=== PATIENT | male | born 1990 | race Caucasian/White ===

== ENCOUNTER 2016-07-30 19:53 | Inpatient (IN) | payer OTHER ==
[~2016-07-30] VITALS: Ht 172.7 cm; Wt 55.3 kg
[2016-07-30 19:56] VITALS: BP 127/88; PULSE 116; RESP 16; TEMP 97.6; O2SAT 97
[2016-07-30] MEDS ORDERED: SODIUM CHLOR 0.9% 1000 ML INJ 1,000 ML IV ONE ×3 (21:23→22:15)
[2016-07-30] MEDS ORDERED: ONDANSETRON HCL 4 MG/2 ML VIAL IV PUSH ONE (21:30)
[2016-07-30] MEDS ORDERED: SODIUM CHLORIDE 0.9% FLUSH 5 ML FLUSH IVF PRN (21:30)
--- NOTE | 2016-07-30 21:31 | PD ---
HPI Chief Complaint: GI Complaint Time Seen by Provider: 21:14 Travel History International Travel<30 days: No Contact w/Intl Traveler<30days: No Traveled to known affect area: No History of Present Illness HPI 26-year-old male here with family for evaluation of several episodes of nausea, vomiting, and 17 pound weight loss over the last month. Throughout the past month the patient has had intermittent vomiting. Since yesterday the patient has had several episodes of vomiting. Emesis is clear and consistent whatever he is eaten or drink. No blood or bile. No diarrhea. No abdominal pain. He notices that his mouth is very dry and that things taste better. No paresthesias or motor deficits. He has had polydipsia and polyuria. No family history of diabetes. He occasionally drinks alcohol. No tobacco or illicit drugs. Bedside fingerstick glucose performed after assessment and is over 500. [facility] Social History Tobacco Use: No Allergies-Medications (Allergen,Severity, Reaction): Coded Allergies: No Known Allergies (Unverified , 07/30/16) Reported Meds & Prescriptions Reported Meds & Active Scripts Active No Active Prescriptions or Reported Medications Review of Systems Except as stated in HPI: all other systems reviewed are Neg Physical Exam Narrative GENERAL: Well-developed, cachectic appearing, comfortable, no acute distress. SKIN: Warm and dry. HEAD: Atraumatic. Normocephalic. EYES: Pupils equal and round. No scleral icterus. No injection or drainage. ENT: No nasal bleeding or discharge. Mucous membranes pink and dry. NECK: Trachea midline. No JVD. No nuchal rigidity. CARDIOVASCULAR: Regular rate and rhythm. RESPIRATORY: No accessory muscle use. Clear to auscultation. Breath sounds equal bilaterally. GASTROINTESTINAL: Abdomen soft, non-tender, nondistended. MUSCULOSKELETAL: No obvious deformities. No clubbing. No cyanosis. No edema. NEUROLOGICAL: Awake and alert. No obvious cranial nerve deficits. Motor grossly within normal limits. Normal speech. PSYCHIATRIC: Appropriate mood and affect; insight and judgment normal. Data Data Last Documented VS Vital Signs Date Time Temp Pulse Resp B/P Pulse Ox O2 Delivery O2 Flow Rate FiO2 07/30/16 23:27 103 16 109/55 98 Nasal Cannula 2 07/30/16 19:56 97.6 Orders Complete Blood Count With Diff (07/30/16 21:23) Comprehensive Metabolic Panel (07/30/16 21:23) Beta Hydroxybutyrate (Acetone) (07/30/16 21:23) Urinalysis - C+S If Indicated (07/30/16 21:23) Blood Gas Venous (Vbg) (07/30/16 21:23) Ecg Monitoring (07/30/16 21:23) Iv Access Insert/Monitor (07/30/16 21:23) Oximetry (07/30/16 21:23) NPO (07/30/16 21:23) Sodium Chlor 0.9% 1000 Ml Inj (Ns 1000 M (07/30/16 21:23) Sodium Chlor 0.9% 1000 Ml Inj (Ns 1000 M (07/30/16 21:53) Sodium Chloride 0.9% Flush (Ns Flush) (07/30/16 21:30) Ondansetron Inj (Zofran Inj) (07/30/16 21:30) Sodium Chlor 0.9% 1000 Ml Inj (Ns 1000 M (07/30/16 22:15) ^ Patient Service Representative / Telemetry (07/30/16 23:01) ^ Insert Iv (07/30/16 23:01) Diet Npo (07/31/16 Breakfast) Sodium Chlor 0.9% 1000 Ml Inj (Ns 1000 M (07/30/16 23:01) Dext 5%-Nacl 0.9% 1000 Ml Inj (D5w-Ns 10 (07/30/16 23:01) Insulin Human Regular Inj (Novolin R Inj (07/30/16 23:15) Insulin Regular (Iv Infusion) (Novolin R (07/30/16 23:15) Potassium Chlor 40 Meq Premix (Kcl 40 Me (07/30/16 23:15) Potassium Chlor 40 Meq Premix (Kcl 40 Me (07/30/16 23:15) Potassium Chlor 20 Meq Premix (Kcl 20 Me (07/30/16 23:15) Potassium Chlor 20 Meq Premix (Kcl 20 Me (07/30/16 23:15) Potassium Chlor 20 Meq Premix (Kcl 20 Me (07/30/16 23:15) Potassium Chlor 20 Meq Premix (Kcl 20 Me (07/30/16 23:15) Potassium Chlor 20 Meq Premix (Kcl 20 Me (07/30/16 23:15) Potassium Chlor 20 Meq Premix (Kcl 20 Me (07/30/16 23:15) Sodium Bicarbonate 8.4% Inj (Sodium Bica (07/30/16 23:15) Sodium Bicarbonate 8.4% Inj (Sodium Bica (07/30/16 23:15) Sodium Phosphate Inj (Sodium Phosphate I (07/30/16 23:15) Hemoglobin (Hgb) A1c (07/30/16 23:01) Basic Metabolic Panel (Bmp) (07/31/16 04:01) Basic Metabolic Panel (Bmp) (07/31/16 10:01) Basic Metabolic Panel (Bmp) (07/31/16 16:01) Basic Metabolic Panel (Bmp) (07/31/16 22:01) Magnesium (Mg) (07/31/16 04:01) Magnesium (Mg) (07/31/16 10:01) Magnesium (Mg) (07/31/16 16:01) Magnesium (Mg) (07/31/16 22:01) Phosphorus (Po4) (07/31/16 04:01) Phosphorus (Po4) (07/31/16 10:01) Phosphorus (Po4) (07/31/16 16:01) Phosphorus (Po4) (07/31/16 22:01) Beta Hydroxybutyrate (Acetone) (07/31/16 10:01) Beta Hydroxybutyrate (Acetone) (07/31/16 22:01) Admit Order (Ed Use Only) (07/30/16 23:27) ^ Initiate Protocol (07/30/16 23:24) ^ Instruction (07/30/16 23:24) [facility] Nursing Information (07/30/16 23:30) Chlorhexidine 2% Cloth (Chlorhexidine 2% (07/31/16 04:00) Chlorhexidine 2% Cloth (Chlorhexidine 2% (07/30/16 23:30) Mrsa Pcr Surveillance (07/30/16 23:24) Admit To Inpatient (07/30/16 ) Vital Signs (Adult) Q4H (07/30/16 23:24) Activity Oob Ad Nadiya (07/30/16 23:24) ^ Patient Service Representative / Telemetry .CONTINUOUS (07/30/16 23:24) Intake + Output JANNA.QSHIFT (07/30/16 23:24) Sodium Chloride 0.9% Flush (Ns Flush) (07/30/16 23:30) Sodium Chloride 0.9% Flush (Ns Flush) (07/31/16 09:00) Ondansetron Inj (Zofran Inj) (07/30/16 23:30) Bisacodyl Supp (Dulcolax Supp) (07/30/16 23:30) Scd Bilateral/Knee High JANNA.BID (07/30/16 23:24) Gregorio Bilateral/Knee High JANNA.QSHIFT (07/30/16 23:24) Acetaminophen (Tylenol) (07/30/16 23:30) Acetamin-Hydrocod 325-5 Mg ([place] 5-325 (07/30/16 23:30) Acetamin-Hydrocod 325-10 Mg ([place] 10-32 (07/30/16 23:30) Inpatient Certification (07/30/16 ) Consult Mat Tester (07/30/16 ) Protein Corrected Calcium(Pcc) (07/31/16 03:21) Labs Laboratory Tests Test 07/30/16 07/30/16 21:50 22:05 White Blood Count 12.4 TH/MM3 Red Blood Count 5.64 MIL/MM3 Hemoglobin 16.2 GM/DL Hematocrit 49.4 % Mean Corpuscular Volume 87.6 FL Mean Corpuscular Hemoglobin 28.8 PG Mean Corpuscular Hemoglobin 32.8 % Concent Red Cell Distribution Width 13.1 % Platelet Count 359 TH/MM3 Mean Platelet Volume 10.3 FL Neutrophils (%) (Auto) 80.8 % Lymphocytes (%) (Auto) 11.5 % Monocytes (%) (Auto) 6.7 % Eosinophils (%) (Auto) 0.4 % Basophils (%) (Auto) 0.6 % Neutrophils # (Auto) 10.0 TH/MM3 Lymphocytes # (Auto) 1.4 TH/MM3 Monocytes # (Auto) 0.8 TH/MM3 Eosinophils # (Auto) 0.0 TH/MM3 Basophils # (Auto) 0.1 TH/MM3 CBC Comment DIFF FINAL Differential Comment Urine Color LIGHT-YELLOW Urine Turbidity CLEAR Urine pH 5.0 Urine Specific [place] 1.035 Urine Protein 30 mg/dL Urine Glucose (UA) 1000 mg/dL Urine Ketones 150 mg/dL Urine Occult Blood TRACE Urine Nitrite NEG Urine Bilirubin NEG Urine Urobilinogen LESS THAN 2.0 MG/DL Urine Leukocyte Esterase NEG Urine RBC 1 /hpf Urine WBC 1 /hpf Urine Squamous Epithelial <1 /hpf Cells Urine Bacteria RARE /hpf Urine Granular Casts 3 /lpf Urine Mucus FEW /lpf Microscopic Urinalysis Comment CULT NOT INDICATED Sodium Level 135 MEQ/L Potassium Level 4.6 MEQ/L Chloride Level 94 MEQ/L Carbon Dioxide Level 11.9 MEQ/L Anion Gap 29 MEQ/L Blood Urea Nitrogen 13 MG/DL Creatinine 1.33 MG/DL Estimat Glomerular Filtration 64 ML/MIN Rate Random Glucose 485 MG/DL Calcium Level 9.6 MG/DL Total Bilirubin 0.6 MG/DL Aspartate Amino Transf 22 U/L (AST/SGOT) Alanine Aminotransferase 29 U/L (ALT/SGPT) Alkaline Phosphatase 92 U/L Total Protein 9.5 GM/DL Albumin 5.1 GM/DL B-Hydroxybutyrate 12.74 MMOL/L Blood Gas Puncture Site Blood Gas Patient Temperature 98.6 Venous Blood pH 7.16 Venous Blood Partial Pressure 31 mmHg CO2 Venous Blood Partial Pressure 44 mmHg O2 Venous Blood HCO3 11 mmol/L Venous Blood Oxygen Saturation 69 % Venous Blood Oxygen Content 16.5 Vol % Venous Blood Base Excess -16.5 mmol/L Oxygen Delivery Device ROOM AIR Blood Gas Inspired Oxygen 21 % MDM Medical Decision Making Medical Screen Exam Complete: Yes Emergency Medical Condition: Yes Interpretation(s) EKG: Sinus, rate 90, rightward axis, early repolarization, peaked T waves, no ischemic abnormality. Differential Diagnosis DKA, new onset diabetes, dehydration Narrative Course Initial vital signs show heart rate 116, blood pressure 127/80, pulse ox 97% on room air, oral temp of 97.6 reason Fahrenheit. Heart rate improved to the 90s after 2 L of IV fluids. Bedside glucose at time of initial assessment was over 500. Patient has ketotic odor on breath. I have a high suspicion for DKA. DKA labs sent, VBG performed, the patient was given a total of 3 L of IV fluids. VBG shows a venous pH of 7.15 with a bicarbonate of 10.5. CMP shows WBC 12.4 with 80.8% neutrophils. This is likely from stress demargination from vomiting. CMP shows a potassium of 4.6 with slight hemolysis, bicarbonate 11.9, anion gap 29, creatinine 1.33, GFR 64, random glucose 485. DKA protocol initiated after CMP/potassium resulted. Beta hydroxybutyrate is 12.74. The patient and the patient's family were made aware of all findings and plan for admission to the ICU. Case discussed with hospitalist Dr. Doyle who will admit the patient to her service. Although homa states that the patient has [facility] insurance, it does not start until August. Critical Care Narrative Aggregate critical care time was 40 minutes. Time to perform other separately billable procedures was not included in the critical care time. My time did not include minutes spent treating any other patients simultaneously or on activities that did not directly contribute to the patient's treatment. The services I provided to this patient were to treat and/or prevent clinically significant deterioration that could result in: , permanent disability, worsening clinical condition, diabetic coma I provided critical care services requiring my management, as noted below: Chart data review, documentation time, medication orders and management, vital sign assessments/reviewing monitor data, ordering and reviewing lab tests, ordering and interpreting/reviewing x-rays and diagnostic studies, care of the patient and discussion of the patient with the admitting physicians. Diagnosis Primary Impression: DKA (diabetic ketoacidoses) Qualified Code: E13.10 - Diabetic ketoacidosis without coma associated with other specified diabetes mellitus Additional Impression: Diabetes mellitus, new onset Admitting Information Admitting Physician Requests: Admit Scripts No Active Prescriptions or Reported Meds Jonathan Cantu MD Jul 30, 2016 21:31
[2016-07-30 22:06] VITALS: RESP 18
[2016-07-30 22:12] LABS: BLOOD GAS VENOUS BASE EXCESS -16.5 mmol/L (-2-2); BLOOD GAS VENOUS HCO3 11 mmol/L (22-26); BLOOD GAS VENOUS O2 CONTENT 16.5 Vol % (9.0-17.0); BLOOD GAS VENOUS O2 HGB SAT 69 % (70-76); BLOOD GAS VENOUS PCO2 31 mmHg (44-48); BLOOD GAS VENOUS PO2 44 mmHg (35-40); BLOOD GAS VENOUS pH 7.16 (7.360-7.400); TEMP CORR TO 98.6
[2016-07-30 22:13] LABS: CRITICAL VALUE YES; FIO2 21 %; OXYGEN DEVICE ROOM AIR; STAT YES
[2016-07-30 22:18] LABS: BASOPHIL # 0.1 TH/MM3 (0-0.2); BASOPHIL % 0.6 % (0.0-2.0); EOSINOPHIL % 0.4 % (0.0-4.0); HEMATOCRIT 49.4 % (39.0-51.0); HEMO FLAGS DIFF FINAL; LYMPH % 11.5 % (9.0-44.0); LYMPHOCYTE # 1.4 TH/MM3 (1.0-4.8); MEAN CELL VOLUME 87.6 FL (80.0-100.0); MEAN CORPUSCULAR HEMOGLOBIN 28.8 PG (27.0-34.0); MEAN CORPUSCULAR HGB CONC 32.8 % (32.0-36.0); MONO % 6.7 % (0.0-8.0); NEUT % 80.8 % (16.0-70.0); PLATELET COUNT 359 TH/MM3 (150-450); RED BLOOD COUNT 5.64 MIL/MM3 (4.50-5.90); RED CELL DISTRIBUTION WIDTH 13.1 % (11.6-17.2); WHITE BLOOD COUNT 12.4 TH/MM3 (4.0-11.0)
[2016-07-30 22:34] LABS: BACTERIA, URINE RARE /hpf; BLOOD, URINE TRACE (NEG); COMMENT (UR) CULT NOT INDICATED; CULTURE IF INDICATED CULT NOT INDICATED; GLUCOSE,URINE 1000 mg/dL (NEG); GRANULAR CAST, URINE 3 /lpf; KETONE, URINE 150 mg/dL (NEG); MUCUS URINE FEW /lpf (OCC); NITRITE,URINE NEG (NEG); SQUAMOUS EPITHELIAL CELL URINE <1 /hpf (0-5); URINE COLOR LIGHT-YELLOW (YELLW/STRAW)
[2016-07-30 22:58] LABS: ALKALINE PHOSPHATASE 92 U/L (45-117); ALT (GPT) 29 U/L (12-78); ANION GAP 29 MEQ/L (5-15); AST (GOT) 22 U/L (15-37); BETA-HYDROXYBUTYRATE 12.74 MMOL/L (0.00-0.39); BICARBONATE 11.9 MEQ/L (21.0-32.0); BLOOD UREA NITROGEN 13 MG/DL (7-18); CHLORIDE 94 MEQ/L (98-107); GLOMERULAR FILTRATION RATE 64 ML/MIN (>89); SODIUM (NA) 135 MEQ/L (136-145); TOTAL BILIRUBIN ADULT 0.6 MG/DL (0.2-1.0)
[2016-07-30 22:59] LABS: POTASSIUM 4.6 MEQ/L (3.5-5.1)
[2016-07-30] MEDS ORDERED: POTASSIUM CHLOR 20 MEQ PREMIX 100 ML IV PRN ×5 (23:15)
[2016-07-30] MEDS ORDERED: POTASSIUM CHLOR 40 MEQ PREMIX 100 ML IV PRN ×2 (23:15)
[2016-07-30] MEDS ORDERED: INSULIN REGULAR (IV INFUSION) 100 UNITS in SODIUM CHLORIDE 0.9% INJ 99 ML IV SCH (23:15)
[2016-07-30] MEDS ORDERED: SODIUM PHOSPHATE INJ 15 MMOL in SODIUM CHLORIDE 0.9% INJ 100 ML IV PRN (23:15)
[2016-07-30] MEDS ORDERED: INSULIN HUMAN REGULAR 1,000 UNITS/10 ML VIAL IV PUSH ONE (23:15)
[2016-07-30] MEDS ORDERED: SODIUM BICARBONATE 8.4% SOLN 50 MEQ/50 ML VIAL IV PRN ×2 (23:15)
[2016-07-30 23:27] VITALS: BP 109/55; PULSE 103; RESP 16; O2SAT 98
--- NOTE | 2016-07-30 23:28 | HHI.HP ---
[facility] Service [facility] Primary Care Physician No Primary Care Physician Admission Diagnosis DKA, new onset diabetes Diagnoses: (1) DKA (diabetic ketoacidoses) Diagnosis: Principal (2) Diabetes mellitus, new onset Diagnosis: Principal (3) Leukocytosis Diagnosis: Principal (4) Renal insufficiency Diagnosis: Principal Travel History International Travel<30 Days: No Contact w/Intl Traveler <30 Da: No Traveled to Known Affected Are: No History of Present Illness This is a 26-year-old male with no previous PMH who was brought to the ER by family secondary to abdominal pain, nausea, vomiting and weight loss. Per Sister, pt has had 17lb unintentional weight loss in the last 1 month due to persistent nausea/vomiting. Today, symptoms progressively worse and unable to take anything by mouth. Notes polyuria and polydipsia since the start of his symptoms. No personal h/o DM, no family history of DM. On arrival, BP 127/88, HR 116, O2 sat 97% on RA, Afebrile. WBC 12.4, elevated neutrophil count. BS 485, CO2 11.9, Anion Gap 29, creatinine 1.33. B-hydroxy 12.74. ABG w/ pH 7.16 , pCO2 31, pO2 44 on RA. S/p IVF and started on Insulin gtt in ER. Review of Systems Other ROS: 14 point review of systems otherwise negative. Past Family Social History Past Medical History PMH: None Past Surgical History PAST SURGICAL HISTORY: None Allergies: Coded Allergies: No Known Allergies (Unverified , 07/30/16) Family History PAST FAMILY HISTORY: Reviewed. No h/o DM or CAD Social History PAST SOCIAL HISTORY: Negative for alcohol, tobacco or drugs. Physical Exam Vital Signs Vital Signs Date Time Temp Pulse Resp B/P Pulse Ox O2 Delivery O2 Flow Rate FiO2 07/30/16 23:27 103 16 109/55 98 Nasal Cannula 2 07/30/16 22:06 18 07/30/16 21:30 16 07/30/16 19:56 97.6 116 16 127/88 97 Room Air Physical Exam PE: GENERAL: Pleasant young male in no acute distress. HEENT: PERRLA, EOMI. No scleral icterus or conjunctival pallor. No lid lag or facial droop. CARDIOVASCULAR: Regular rate and rhythm. No obvious murmurs to auscultation. No chest tenderness to palpation. RESPIRATORY: No obvious rhonchi or wheezing. Clear to auscultation. Breath sounds equal bilaterally. GASTROINTESTINAL: Abdomen soft, non-tender, nondistended. BS normal. MUSCULOSKELETAL: Extremities without clubbing, cyanosis, or edema. No obvious deformities. NEUROLOGICAL: Awake, alert and oriented x4. No focal neurologic deficits. Moving both upper and lower extremities spontaneously. Laboratory Laboratory Tests Test 07/30/16 07/30/16 21:50 22:05 White Blood Count 12.4 Red Blood Count 5.64 Hemoglobin 16.2 Hematocrit 49.4 Mean Corpuscular Volume 87.6 Mean Corpuscular Hemoglobin 28.8 Mean Corpuscular Hemoglobin 32.8 Concent Red Cell Distribution Width 13.1 Platelet Count 359 Mean Platelet Volume 10.3 Neutrophils (%) (Auto) 80.8 Lymphocytes (%) (Auto) 11.5 Monocytes (%) (Auto) 6.7 Eosinophils (%) (Auto) 0.4 Basophils (%) (Auto) 0.6 Neutrophils # (Auto) 10.0 Lymphocytes # (Auto) 1.4 Monocytes # (Auto) 0.8 Eosinophils # (Auto) 0.0 Basophils # (Auto) 0.1 CBC Comment DIFF FINAL Differential Comment Urine Color LIGHT-YELLOW Urine Turbidity CLEAR Urine pH 5.0 Urine Specific [place] 1.035 Urine Protein 30 Urine Glucose (UA) 1000 Urine Ketones 150 Urine Occult Blood TRACE Urine Nitrite NEG Urine Bilirubin NEG Urine Urobilinogen LESS THAN 2.0 Urine Leukocyte Esterase NEG Urine RBC 1 Urine WBC 1 Urine Squamous Epithelial <1 Cells Urine Bacteria RARE Urine Granular Casts 3 Urine Mucus FEW Microscopic Urinalysis Comment CULT NOT INDICATED Sodium Level 135 Potassium Level 4.6 Chloride Level 94 Carbon Dioxide Level 11.9 Anion Gap 29 Blood Urea Nitrogen 13 Creatinine 1.33 Estimat Glomerular Filtration 64 Rate Random Glucose 485 Calcium Level 9.6 Total Bilirubin 0.6 Aspartate Amino Transf 22 (AST/SGOT) Alanine Aminotransferase 29 (ALT/SGPT) Alkaline Phosphatase 92 Total Protein 9.5 Albumin 5.1 B-Hydroxybutyrate 12.74 Blood Gas Puncture Site Blood Gas Patient Temperature 98.6 Venous Blood pH 7.16 Venous Blood Partial Pressure 31 CO2 Venous Blood Partial Pressure 44 O2 Venous Blood HCO3 11 Venous Blood Oxygen Saturation 69 Venous Blood Oxygen Content 16.5 Venous Blood Base Excess -16.5 Oxygen Delivery Device ROOM AIR Blood Gas Inspired Oxygen 21 Result Diagram: 07/30/16214907/30/162149 Assessment and Plan Problem List: (1) DKA (diabetic ketoacidoses) ICD Code: E13.10 Status: Acute (2) Diabetes mellitus, new onset ICD Code: E11.9 Status: Acute (3) Leukocytosis ICD Code: D72.829 Status: Acute (4) Renal insufficiency ICD Code: N28.9 Status: Acute Assessment and Plan A/P: 1. DKA: BS 485, AG 29, CO2 11.9, B-hydroxy 12.47, pH 7.16. S/p IVF, Started on Insulin gtt in ER, will admit to ICU, continue w/ DKA Protocol, repeat labs 2. DM: New Onset. Polyuria and polydipsia x1 month, nausea/vomiting, decreased PO intake and unintentional weight loss of 17lbs. Currently in DKA. Check Hgb A1c. Consult Forensic Toxicologist. Transition to Sliding Scale once off Insulin gtt. 3. Renal Insufficiency: Creatinine 1.33, presumably acute, secondary to dehydration from DKA. U/a negative for UTI. IVF, repeat labs in am. 4. Leukocytosis: WBC 12.4. Afebrile. No signs of infection. Likely secondary to stress reaction from DKA. Continue w/ above treatment, repeat labs in am. 5. DVT Prophylaxis: SCD/Teds. 6. Social work for d/c planning as needed. 7. Case discussed w/ ER physician at length. Physician Certification 2 Midnight Certification Type: Admission for Inpatient Services Order for Inpatient Services The services are ordered in accordance with Medicare regulations or non- Medicare payer requirements, as applicable. In the case of services not specified as inpatient-only, they are appropriately provided as inpatient services in accordance with the 2-midnight benchmark. Estimated LOS (days): 2 days is the estimated time the patient will need to remain in the hospital, assuming treatment plan goals are met and no additional complications. Post-Hospital Plan: Home Problem Qualifiers (1) DKA (diabetic ketoacidoses): Qualified Code: E13.10 - Diabetic ketoacidosis without coma associated with other specified diabetes mellitus Olinda Doyle MD Jul 30, 2016 23:28
[2016-07-30] MEDS ORDERED: SODIUM CHLORIDE 0.9% FLUSH 5 ML FLUSH FLUSH PRN (23:30)
[2016-07-30] MEDS ORDERED: CHLORHEXIDINE GLUCONATE 2 % 1 PACK (2 CLOTHS) TOP PRN (23:30)
[2016-07-30] MEDS ORDERED: ONDANSETRON HCL 4 MG/2 ML VIAL IVP PRN (23:30)
[2016-07-30] MEDS ORDERED: ACETAMINOPHEN/HYDROcodone 325 MG/5 MG TAB PO PRN (23:30)
[2016-07-30] MEDS ORDERED: MISCELLANEOUS NURSING INFORMATION XX SCH (23:30)
[2016-07-30] MEDS ORDERED: BISACODYL 10 MG SUPP PR PRN (23:30)
[2016-07-30] MEDS ORDERED: ACETAMINOPHEN/HYDROcodone 325 MG/10 MG TAB PO PRN (23:30)
[2016-07-30] MEDS ORDERED: ACETAMINOPHEN 325 MG TAB PO PRN (23:30)
[2016-07-31] VITALS (16 sets, daily range): BP systolic 98–126; BP diastolic 58–85; PULSE 72–102; RESP 14–16; TEMP 97.9–98.2; O2SAT 97–100
[2016-07-31] MEDS: SODIUM CHLOR 0.9% 1000 ML INJ 1,000 ML IV SCH ×3 (00:03→07:01)
[2016-07-31] MEDS: DEXT 5%-NACL 0.9% 1000 ML INJ 1,000 ML IV SCH ×3 (01:22→10:20)
[2016-07-31] MEDS: CHLORHEXIDINE GLUCONATE 2 % 1 PACK (2 CLOTHS) TOP SCH (04:00)
[2016-07-31 04:05] LABS: MAGNESIUM 1.8 MG/DL (1.5-2.5); POTASSIUM 3.6 MEQ/L (3.5-5.1)
[2016-07-31 04:29] LABS: CALCIUM-PROTEIN CORRECTED 7.4 MG/DL (8.5-10.1)
[2016-07-31] MEDS: POTASSIUM CHLOR 20 MEQ PREMIX 100 ML IV PRN ×2 (06:19→08:28)
--- NOTE | 2016-07-31 08:17 | HHI.PR ---
Subjective Remarks Follow-up DKA. Patient states that he feels very hungry. His mouth is dry. Denies pain, nausea, vomiting, dyspnea. Objective Vitals Vital Signs Date Time Temp Pulse Resp B/P Pulse Ox O2 Delivery O2 Flow Rate FiO2 07/31/16 07:08 97.9 86 16 108/73 97 Room Air 07/31/16 06:06 89 16 110/66 100 Room Air 07/31/16 04:00 82 16 98/58 99 Room Air 07/31/16 00:30 102 16 110/66 97 Room Air 07/30/16 23:27 103 16 109/55 98 Nasal Cannula 2 07/30/16 22:06 18 07/30/16 21:30 16 07/30/16 19:56 97.6 116 16 127/88 97 Room Air Result Diagram: 07/30/16 2150 07/31/16 0321 Objective Remarks General: No acute distress. Heart: Regular rate and rhythm. No murmur. Lungs: Clear to auscultation bilaterally. No wheezes, rales, or rhonchi. Breathing is nonlabored. Abdomen: Soft, nontender, nondistended. Extremities: No lower extremity edema. Psych: Alert and oriented. Urinary Catheter: No Vascular Central Line Catheter: No A/P Problem List: (1) DKA (diabetic ketoacidoses) ICD Code: E13.10 Status: Acute (2) Leukocytosis ICD Code: D72.829 Status: Acute (3) Renal insufficiency ICD Code: N28.9 Status: Acute (4) Hypocalcemia ICD Code: E83.51 Status: Acute (5) New onset type 1 diabetes mellitus, uncontrolled ICD Code: E10.65 Status: Acute Assessment and Plan 1. Diabetic ketoacidosis: Continue with DKA protocol. Admit to ICU. On insulin drip. Monitor electrolytes and replace per protocol. Transition to sliding scale insulin and start diabetic diet once insulin drip is discontinued. 2. New onset type 1 diabetes mellitus: Hemoglobin A1c pending. clinical educator consult. 3. Acute renal insufficiency: Likely secondary to dehydration from DKA. Monitor labs. Continue IV fluids. 4. Leukocytosis: Likely stress reaction. No other signs of infection at this time. Monitor labs. 5. DVT prophylaxis: SCDs, PAULO hose. Problem Qualifiers (1) DKA (diabetic ketoacidoses): Qualified Code: E13.10 - Diabetic ketoacidosis without coma associated with other specified diabetes mellitus Eusebio Salinas MD Jul 31, 2016 08:17
[2016-07-31] MEDS: SODIUM CHLORIDE 0.9% FLUSH 5 ML FLUSH FLUSH SCH ×2 (09:00→21:33)
[2016-07-31 09:51] LABS: ANION GAP 10 MEQ/L (5-15); BETA-HYDROXYBUTYRATE 1.27 MMOL/L (0.00-0.39); BICARBONATE 20.5 MEQ/L (21.0-32.0); BLOOD UREA NITROGEN 5 MG/DL (7-18); CHLORIDE 112 MEQ/L (98-107); GLOMERULAR FILTRATION RATE 111 ML/MIN (>89); MAGNESIUM 1.8 MG/DL (1.5-2.5); POTASSIUM 3.4 MEQ/L (3.5-5.1); SODIUM (NA) 142 MEQ/L (136-145)
[2016-07-31 10:08] LABS: CALCIUM-PROTEIN CORRECTED 7.6 MG/DL (8.5-10.1)
[2016-07-31] MEDS ORDERED: DC Insulin drip 2 hrs post basal insulin dose XX ONE (10:15)
[2016-07-31] MEDS ORDERED: DEXTROSE 50% IN WATER 50 ML VIAL(D50) IV PUSH PRN (10:15)
[2016-07-31] MEDS ORDERED: DC previous DKA orders (HMC 1917) XX ONE (10:15)
[2016-07-31] MEDS ORDERED: GLUCAGON 1 MG/ML VIAL OTHER PRN (10:15)
[2016-07-31] MEDS: INSULIN ASPART SUPPLEMENTAL SCALE SQ SCH ×3 (11:00→21:34)
[2016-07-31] MEDS: INSULIN DETEMIR 100 UNITS/ML VIAL SQ SCH (11:06)
[2016-07-31] MEDS ORDERED: INSULIN REGULAR (IV INFUSION) 100 UNITS in SODIUM CHLORIDE 0.9% INJ 99 ML IV SCH (11:15)
[2016-07-31] MEDS ORDERED: POTASSIUM CHLOR 40 MEQ PREMIX 100 ML IV PRN ×2 (13:15)
[2016-07-31] MEDS ORDERED: POTASSIUM PHOSPHATE MONOBASIC 500 MG TAB PO/TUBE PRN (13:15)
[2016-07-31] MEDS ORDERED: POTASSIUM CL 40 MEQ/30 ML LIQ UDC PO/TUBE PRN ×2 (13:15)
[2016-07-31] MEDS ORDERED: POTASSIUM PHOSPHATE INJ 30 MMOL in SODIUM CHLOR 0.9% 250 ML INJ 250 ML IV PRN (13:15)
[2016-07-31] MEDS ORDERED: POTASSIUM CHLOR 20 MEQ PREMIX 100 ML IV PRN ×2 (13:15)
[2016-07-31] MEDS ORDERED: POTASSIUM PHOSPHATE MONOBASIC 500 MG TAB PO PRN (13:15)
[2016-07-31] MEDS ORDERED: MAGNESIUM OXIDE 400 MG TAB PO PRN (13:15)
[2016-07-31] MEDS ORDERED: SODIUM PHOSPHATE INJ 30 MMOL in SODIUM CHLOR 0.9% 250 ML INJ 240 ML IV PRN (13:15)
[2016-07-31] MEDS: NS + KCL 20 MEQ INJ 1,000 ML IV SCH ×2 (14:24→21:51)
[2016-07-31] MEDS ORDERED: MAGNESIUM SULFATE INJ 2 GM in SODIUM CHLORIDE 0.9% INJ 96 ML IV PRN (15:00)
[2016-07-31] MEDS ORDERED: MAGNESIUM SULFATE INJ 4 GM in SODIUM CHLORIDE 0.9% INJ 92 ML IV PRN (15:00)
[2016-07-31 19:47] LABS: BICARBONATE 20.2 MEQ/L (21.0-32.0); POTASSIUM 3.7 MEQ/L (3.5-5.1)
--- NOTE | 2016-07-31 23:35 | EKG ---
Date Performed: 07/30/2016 Time Performed: 21:59:25 PTAGE: 26 years EKG: Sinus rhythm POSSIBLE LEFT ATRIAL ENLARGEMENT MARKED RIGHT AXIS DEVIATION ST ELEVATION, PROBABLY EARLY REPOLARIZA TION MINIMAL ST DEPRESSION TALL T-WAVES, SUGGESTS POSSIBLE HYPERKALEMIA ABNORMAL ECG NO PREVIOUS TRACING DOCTOR: Carter Sommer Interpretating Date/Time 07/31/2016 23:35:06
[2016-08-01] VITALS (10 sets, daily range): BP systolic 106–124; BP diastolic 67–83; PULSE 64–94; RESP 16–20; TEMP 98–99.7; O2SAT 98–100
[2016-08-01] MEDS: CHLORHEXIDINE GLUCONATE 2 % 1 PACK (2 CLOTHS) TOP SCH (04:00)
[2016-08-01] MEDS: NS + KCL 20 MEQ INJ 1,000 ML IV SCH ×3 (04:18→21:32)
[2016-08-01] MEDS: INSULIN ASPART SUPPLEMENTAL SCALE SQ SCH ×4 (07:00→21:31)
[2016-08-01] MEDS: SODIUM CHLORIDE 0.9% FLUSH 5 ML FLUSH FLUSH SCH ×2 (08:26→21:00)
[2016-08-01] MEDS: INSULIN DETEMIR 100 UNITS/ML VIAL SQ SCH (08:26)
--- NOTE | 2016-08-01 09:28 | HHI.PR ---
Subjective Remarks Follow up DKA. The patient states that he feels much better today. No nausea/ vomiting. No dyspnea. Objective Vitals Vital Signs Date Time Temp Pulse Resp B/P Pulse Ox O2 Delivery O2 Flow Rate FiO2 08/01/16 06:00 71 08/01/16 04:00 98.5 66 16 106/70 98 08/01/16 04:00 66 08/01/16 02:00 64 08/01/16 00:00 98.4 85 16 124/83 100 08/01/16 00:00 85 07/31/16 22:00 76 07/31/16 21:02 98.2 89 16 126/85 100 07/31/16 21:00 89 07/31/16 19:30 84 16 115/71 97 Room Air 07/31/16 17:59 75 16 107/78 97 Room Air 07/31/16 16:22 98.1 72 14 105/70 97 Room Air 07/31/16 14:18 74 16 102/74 97 Room Air 07/31/16 13:00 73 16 111/70 97 Room Air 07/31/16 12:00 88 16 106/62 100 Room Air 07/31/16 11:00 96 16 105/65 100 Room Air 07/31/16 10:00 84 16 100/69 97 Room Air I/O 07/31/16 07/31/16 07/31/16 08/01/16 08/01/16 08/01/16 07:00 15:00 23:00 07:00 15:00 23:00 Intake Total 300 ml 1703 ml 1169 ml Output Total 0 ml 1000 ml Balance 300 ml 1703 ml 169 ml Intake Oral 300 ml 540 ml 60 ml IV Total 1163 ml 1109 ml Output Urine Total 0 ml 1000 ml # Voids 1 1 # Bowel Movements 1 1 0 Result Diagram: 07/30/16 2150 07/31/16 1900 Objective Remarks General: No acute distress. Heart: Regular rate and rhythm. No murmur. Lungs: Clear to auscultation bilaterally. No wheezes, rales, or rhonchi. Breathing is nonlabored. Abdomen: Soft, nontender, nondistended. Extremities: No lower extremity edema. Psych: Alert and oriented. Procedures None Urinary Catheter: No Vascular Central Line Catheter: No A/P Problem List: (1) DKA (diabetic ketoacidoses) ICD Code: E13.10 Status: Resolved (2) Leukocytosis ICD Code: D72.829 Status: Acute (3) Renal insufficiency ICD Code: N28.9 Status: Acute (4) Hypocalcemia ICD Code: E83.51 Status: Acute (5) New onset type 1 diabetes mellitus, uncontrolled ICD Code: E10.65 Status: Acute Assessment and Plan 1. Diabetic ketoacidosis: Resolved. 2. New onset type 1 diabetes mellitus: Hemoglobin A1c pending. family living educator consult. Continue Levemir. Monitor Accu-Cheks and cover with sliding scale insulin. Diabetic diet. 3. Acute renal insufficiency: Resolved. Likely secondary to dehydration from DKA. 4. Leukocytosis: Likely stress reaction. No other signs of infection at this time. Labs are pending. 5. DVT prophylaxis: PAULO Pedro. Discharge Planning Transfer to med/surg floor. Possible discharge home tomorrow. Problem Qualifiers (1) DKA (diabetic ketoacidoses): Qualified Code: E13.10 - Diabetic ketoacidosis without coma associated with other specified diabetes mellitus Eusebio Salinas MD Aug 01, 2016 09:28
[2016-08-01 11:00] LABS: AUTOMATED NEUTROPHIL # 2.5 TH/MM3 (1.8-7.7); BASOPHIL # 0.1 TH/MM3 (0-0.2); BASOPHIL % 1.1 % (0.0-2.0); EOSINOPHIL # 0.6 TH/MM3 (0-0.4); EOSINOPHIL % 10.5 % (0.0-4.0); HEMATOCRIT 36.9 % (39.0-51.0); HEMO FLAGS DIFF FINAL; LYMPH % 38.8 % (9.0-44.0); LYMPHOCYTE # 2.3 TH/MM3 (1.0-4.8); MEAN CELL VOLUME 84.6 FL (80.0-100.0); MEAN CORPUSCULAR HEMOGLOBIN 29.2 PG (27.0-34.0); MEAN CORPUSCULAR HGB CONC 34.5 % (32.0-36.0); MONO % 8.1 % (0.0-8.0); NEUT % 41.5 % (16.0-70.0); PLATELET COUNT 236 TH/MM3 (150-450); RED BLOOD COUNT 4.37 MIL/MM3 (4.50-5.90); RED CELL DISTRIBUTION WIDTH 13.2 % (11.6-17.2)
[2016-08-01 11:19] LABS: BICARBONATE 24.5 MEQ/L (21.0-32.0); POTASSIUM 3.1 MEQ/L (3.5-5.1)
[2016-08-01 11:55] LABS: HEMOGLOBIN Ao 72.1 %; HEMOGLOBIN F 2.2 %; HEMOGLOBIN LA1C 2.4 %; HEMOGLOBIN P3 5.5 %
[2016-08-01] MEDS ORDERED: POTASSIUM CL 40 MEQ/30 ML LIQ UDC PO ONE (13:30)
[2016-08-02] VITALS: BP 117/74; PULSE 80; RESP 16; TEMP 98.4; O2SAT 98
[2016-08-02] MEDS: CHLORHEXIDINE GLUCONATE 2 % 1 PACK (2 CLOTHS) TOP SCH (04:00)
[2016-08-02 04:45] VITALS: BP 100/57; PULSE 70; RESP 16; TEMP 97.5; O2SAT 98
[2016-08-02] MEDS: INSULIN ASPART SUPPLEMENTAL SCALE SQ SCH ×3 (06:11→18:39)
[2016-08-02] MEDS: NS + KCL 20 MEQ INJ 1,000 ML IV SCH ×2 (06:13→13:46)
[2016-08-02 07:30] LABS: BICARBONATE 27.9 MEQ/L (21.0-32.0)
[2016-08-02 07:50] VITALS: BP 101/61; PULSE 68; RESP 16; TEMP 96.6; O2SAT 99
[2016-08-02] MEDS ORDERED: NOVOLOGSS SQ (08:32)
[2016-08-02] MEDS ORDERED: LEVEMIR SQ (08:32)
[2016-08-02] MEDS ORDERED: K-TA10TA PO (08:32)
--- NOTE | 2016-08-02 08:33 | HHI.DCPOC ---
Discharge Care Plan Diagnosis: (1) Leukocytosis (2) Renal insufficiency (3) Diabetes mellitus, new onset (4) Hypocalcemia (5) New onset type 1 diabetes mellitus, uncontrolled (6) DKA (diabetic ketoacidoses) Goals to Promote Your Health * To prevent worsening of your condition and complications * To maintain your health at the optimal level Directions to Meet Your Goals Take your medications as prescribed Follow your dietary instruction Follow activity as directed Keep your appointments as scheduled Take your immunizations and boosters as scheduled If your symptoms worsen call your PCP, if no PCP go to Urgent Care Center or Emergency Room Smoking is Dangerous to Your Health. Avoid second hand smoke Call the 24-hour hour crisis hotline for domestic abuse at Eusebio Salinas MD Aug 02, 2016 08:33
[2016-08-02] MEDS ORDERED: BLOOD GLUCOSE M1 KIT (08:35)
[2016-08-02] MEDS ORDERED: BLOOD GLUCOSE T1 TES (08:35)
[2016-08-02] MEDS ORDERED: INSU1MIS (08:35)
[2016-08-02] MEDS ORDERED: LANCETS1 MI1 (08:35)
--- NOTE | 2016-08-02 08:53 | HHI.PR ---
Subjective Remarks Follow up diabetes. Patient has no complaints at this time. Denies chest pain, dyspnea, nausea, vomiting. Objective Vitals Vital Signs Date Time Temp Pulse Resp B/P Pulse Ox O2 Delivery O2 Flow Rate FiO2 08/02/16 07:50 96.6 68 16 101/61 99 08/02/16 04:45 97.5 70 16 100/57 98 08/02/16 00:00 98.4 80 16 117/74 98 08/01/16 20:00 99.7 92 16 111/67 98 08/01/16 15:00 98.0 85 20 113/70 99 08/01/16 14:00 90 08/01/16 12:00 77 08/01/16 12:00 98.5 77 18 107/71 98 08/01/16 10:00 90 I/O 08/01/16 08/01/16 08/01/16 08/02/16 08/02/16 08/02/16 07:00 15:00 23:00 07:00 15:00 23:00 Intake Total 1169 ml 872 ml 600 ml 2090 ml Output Total 1000 ml Balance 169 ml 872 ml 600 ml 2090 ml Intake Oral 60 ml 600 ml 240 ml IV Total 1109 ml 872 ml 1850 ml Output Urine Total 1000 ml # Voids 2 1 # Bowel Movements 0 Result Diagram: 08/01/16 1010 08/02/16 0607 Objective Remarks General: No acute distress. Heart: Regular rate and rhythm. No murmur. Lungs: Clear to auscultation bilaterally. No wheezes, rales, or rhonchi. Breathing is nonlabored. Abdomen: Soft, nontender, nondistended. Extremities: No lower extremity edema. Psych: Alert and oriented. Procedures None Urinary Catheter: No Vascular Central Line Catheter: No A/P Problem List: (1) DKA (diabetic ketoacidoses) ICD Code: E13.10 Status: Resolved (2) Leukocytosis ICD Code: D72.829 Status: Acute (3) Renal insufficiency ICD Code: N28.9 Status: Acute (4) Hypocalcemia ICD Code: E83.51 Status: Acute (5) New onset type 1 diabetes mellitus, uncontrolled ICD Code: E10.65 Status: Acute Assessment and Plan 1. Diabetic ketoacidosis: Resolved. 2. New onset type 1 diabetes mellitus: Hemoglobin A1c 15. family living educator consult pending. Continue Levemir. Monitor Accu-Cheks and cover with sliding scale insulin. Diabetic diet. 3. Acute renal insufficiency: Resolved. Likely secondary to dehydration from DKA. 4. Leukocytosis: Likely stress reaction. Resolved. 5. DVT prophylaxis: PAULO Pedro. 6. Hypokalemia: Supplement potassium. Discharge Planning Plan for discharge home after diabetic education. Problem Qualifiers (1) DKA (diabetic ketoacidoses): Qualified Code: E13.10 - Diabetic ketoacidosis without coma associated with other specified diabetes mellitus Eusebio Salinas MD Aug 02, 2016 08:53
[2016-08-02] MEDS: INSULIN DETEMIR 100 UNITS/ML VIAL SQ SCH (09:39)
[2016-08-02] MEDS: SODIUM CHLORIDE 0.9% FLUSH 5 ML FLUSH FLUSH SCH (09:39)
[2016-08-02] MEDS ORDERED: POTASSIUM CHLORIDE 20 MEQ CONTROLLED RELEASE TAB PO ONE (09:45)
[2016-08-02 12:00] VITALS: BP 113/70; PULSE 88; RESP 18; TEMP 97.8; O2SAT 97
[2016-08-02 16:00] VITALS: BP 106/62; PULSE 77; RESP 18; TEMP 98; O2SAT 99
--- NOTE | 2016-08-08 14:56 | HHI.DS ---
Discharge Summary Admission Date Jul 30, 2016 at 23:32 Discharge Date: Aug 02, 2016 Admitting Diagnosis DKA, new onset diabetes (1) DKA (diabetic ketoacidoses) ICD Code: E13.10 (2) Leukocytosis ICD Code: D72.829 (3) Renal insufficiency ICD Code: N28.9 (4) Hypocalcemia ICD Code: E83.51 (5) New onset type 1 diabetes mellitus, uncontrolled ICD Code: E10.65 Procedures None Brief History - From Admission This is a 26-year-old male with no previous PMH who was brought to the ER by family secondary to abdominal pain, nausea, vomiting and weight loss. Per Sister, pt has had 17lb unintentional weight loss in the last 1 month due to persistent nausea/vomiting. Today, symptoms progressively worse and unable to take anything by mouth. Notes polyuria and polydipsia since the start of his symptoms. No personal h/o DM, no family history of DM. On arrival, BP 127/88, HR 116, O2 sat 97% on RA, Afebrile. WBC 12.4, elevated neutrophil count. BS 485, CO2 11.9, Anion Gap 29, creatinine 1.33. B-hydroxy 12.74. ABG w/ pH 7.16 , pCO2 31, pO2 44 on RA. S/p IVF and started on Insulin gtt in ER. PE at Discharge General: No acute distress. Heart: Regular rate and rhythm. No murmur. Lungs: Clear to auscultation bilaterally. No wheezes, rales, or rhonchi. Breathing is nonlabored. Abdomen: Soft, nontender, nondistended. Extremities: No lower extremity edema. Psych: Alert and oriented. Hospital Course The patient was admitted for management of DKA secondary to new onset diabetes mellitus. He was started on DKA protocol. He was transitioned off insulin drip to subcutaneous sliding scale insulin coverage. He was started on a diabetic diet. He was started on Levemir. Diabetic education was consulted. Hemoglobin A1c was noted to be 15. Acute renal insufficiency was treated with IV hydration and resolved. The patient's glucose control did improve throughout the hospitalization. He was strongly advised to find a primary care physician and an visual merchandiser to follow-up with. Pt Condition on Discharge: Stable Discharge Disposition: Discharge Home Discharge Time: > 30 minutes Discharge Instructions DIET: Follow Instructions for: Diabetic Diet Activities you can perform: Regular-No Restrictions Follow up Referrals: Endocrinology PCP Follow-up - 1 Week New Orders: BASIC METABOLIC PROF - 2-3 Days New Medications: Blood Glucose Monitoring W/Device (Blood Glucose Monitoring W/Device) 1 Kit Kit 1 KIT .ROUTE DIRECTED Blood Sugar Management #1 Ref 0 KIT Blood Glucose Test Strips (Blood Glucose Test Strips) 1 Nathaly Nathaly 1 EA .ROUTE DIRECTED Blood Sugar Management #100 Ref 0 BOX Insulin Syringe/Needle U-100 (Insulin Syringe/U-100/1Ml 28G X 1/2" 1 ml) 1 Mis Mis 1 EA .ROUTE DIRECTED Blood Sugar Management #100 BOX Lancets (Lancets) 1 Mis Mis 1 EA .ROUTE DIRECTED Blood Sugar Management #100 Ref 0 BOX Potassium Chloride ER (K-Tab) 10 Meq Tab 10 MEQ PO DAILY Electrolyte Replacement #30 Ref 0 TAB Insulin Aspart Inj (Novolog Inj) 100 Unit/Ml Inj 1 UNITS SQ ACHS SLIDING SCALE Glucose <70: None 150-199: 1 unit 200-249: 3 units 250-299: 5 units 300-349: 7 units >349: 9 units Blood Sugar Management # 60 Ref 0 INJECTION Insulin Detemir Inj (Levemir Inj) 1,000 unit/ 10 ML Vial 10 UNITS SQ DAILY Blood Sugar Management #30 Ref 0 INJECTION Eusebio Salinas MD Aug 08, 2016 14:56
== END 2016-08-02 19:20 | disposition home or self-care (01) | DRG 639 ==
LOC: NEPC 19:53 → NEDA 23:32 → NEDH 07-31 04:35 → HIME 07-31 20:55 → HOCA 08-01 14:12
PROVIDERS: ADMIT Family Medicine; ATTEND Family Medicine
DX: E10.10 Type 1 diabetes mellitus with ketoacidosis without coma (principal); E83.51 Hypocalcemia; N28.9 Disorder of kidney and ureter, unspecified; D72.829 Elevated white blood cell count, unspecified; Z79.4 Long term (current) use of insulin; E86.0 Dehydration; F43.9 Reaction to severe stress, unspecified; E87.6 Hypokalemia
CPT/HCPCS: 80048; 80053; 81001; 82010; 82805; 82948; 83036; 83735; 84100; 84132; 84155; 85025; 87641; 93005; 96361; 96374; J1815; J1817; J2405; J3480; J7030; J7042; J7050